=== PATIENT | female | born 1975 | race Caucasian/White ===

== ENCOUNTER 2017-08-26 07:59 | Inpatient (IN) | payer OTHER ==
[2017-08-19 15:40] VITALS: BMI 22.9
--- NOTE | 2017-08-23 10:51 | HP ---
Admitting History and Physical - Primary Care Physician PCP: Ian Yeh - Admission Chief Complaint: BRCA positive History of Present Illness: 41 year old premenapausal female Ashkenazi descent BRCA2 positive with strong family H/O breast and pancreatic cancer. Mammogram 11/2016 and breast MRI 06/2017 birad 1. History Source: Patient Limitations to Obtaining History: No Limitations - Past Medical History ...LMP Comment: JUL 2017 Additional Past Medical History: allergies - Past Surgical History Past Surgical History: Yes: (x2 with transfusion with her second cesection hematological W//U negative) Additional Past Surgical History: wisdom teeth - Advance Directives Advance Directives: Yes: Health Care Proxy - Smoking History Smoking history: Never smoked Have you smoked in the past 12 months: No - Alcohol/Substance Use Hx Alcohol Use: No Home Medications - Allergies Allergies/Adverse Reactions: Allergies Allergy/AdvReac Type Severity Reaction Status Date / Time amoxicillin AdvReac Yeast Verified 08/19/17 15:56 infection - Home Medications Home Medications: Ambulatory Orders NK [No Known Home Medication] 08/19/17 Family Disease History - Family Disease History Family Disease History: CA: Grandparent (mat GM breast ca 50/mat GF bone ca 50) , Sister (melanoma 40) Other Family History: mat cousin pancreatic ca 30. mat uncle CRC 50's Physical Examination Constitutional: Yes: Well Nourished Breast(s): Yes: Other (symmetrical no palpable masses or adenopathy bilaterally) Problem List - Problems (1) BRCA gene mutation positive Code(s): Z15.01 - GENETIC SUSCEPTIBILITY TO MALIGNANT NEOPLASM OF BREAST; Z15.09 - GENETIC SUSCEPTIBILITY TO OTHER MALIGNANT NEOPLASM Assessment/Plan bilateral total mastectomies with reconstruction
[2017-08-26] MEDS ORDERED: GENTAMICIN SO4 80 MG/2 ML VIAL ONE (08:34)
[2017-08-26] MEDS ORDERED: ceFAZolin SODIUM 1 GM VIAL ONE ×3 (08:34→15:13)
[2017-08-26] MEDS ORDERED: PROPOFOL 20 ML ONE ×2 (08:37)
[2017-08-26] MEDS ORDERED: MIDAZOLAM HCL 2 MG/2 ML SINGLE DOSE VIAL ONE ×2 (08:48→09:42)
[2017-08-26] MEDS ORDERED: DEXAMETHASONE SOD PHOSPHATE/PF 10 MG/ML SDV ONE (08:48)
[2017-08-26] MEDS ORDERED: BUPIVACAINE HCL/PF (5 MG/ML) 30 ML VIAL IJ ONE (08:49)
[2017-08-26] MEDS ORDERED: BUPIVACAINE HCL/PF 2.5 MG/ML - 30 ML VIAL IJ ONE (08:49)
[2017-08-26] MEDS ORDERED: LIDOCAINE HCL/PF 2% SDV 5ML VIAL ONE ×2 (09:42→10:13)
[2017-08-26] MEDS ORDERED: HYDROmorphone HCL/PF 1 MG/ML VIAL (FOR PYXIS CHARGING ONLY) ONE ×2 (10:46→12:51)
[2017-08-26] MEDS ORDERED: ONDANSETRON 4 MG/2 ML VIAL IVPUSH PRN ×2 (10:51→12:43)
[2017-08-26] MEDS ORDERED: LACTATED RINGERS SOLUTION 1,000 ML IV SCH (11:00)
[2017-08-26] MEDS ORDERED: DEXAMETHASONE SOD PHOSPHATE 4 MG/1 ML VIAL ONE (11:02)
[2017-08-26] MEDS ORDERED: NEOSTIGMINE METHYLSULFATE 0.5 MG/ML - 10 ML MDV ONE (12:01)
[2017-08-26] MEDS ORDERED: GLYCOPYRROLATE 0.2 MG/1 ML VIAL ONE (12:02)
[2017-08-26] MEDS ORDERED: ONDANSETRON 4 MG/2 ML VIAL ONE ×2 (12:07→14:35)
[2017-08-26] MEDS ORDERED: ROCURONIUM BROMIDE 50 MG/5 ML VIAL ONE (12:16)
[2017-08-26] MEDS ORDERED: ZOLPIDEM TARTRATE 5 MG TABLET PO PRN (12:43)
[2017-08-26] MEDS ORDERED: SUCCINYLCHOLINE CHLORIDE 200 MG/10 ML VIAL ONE (13:30)
[2017-08-26] MEDS: traMADol HCL 50 MG TABLET PO SCH ×3 (14:45→22:03)
[2017-08-26] MEDS: ACETAMINOPHEN 325 MG TABLET (FP) PO SCH ×3 (14:45→22:02)
[2017-08-26] MEDS: diazePAM 5 MG TABLET PO ONE ×2 (14:45→15:37)
[2017-08-26] MEDS ORDERED: CEFAZOLIN 1 GM/D5W 1 GRAM/50 ML BAG IVPB SCH (15:00)
[2017-08-26] MEDS: DEXTROSE 5%-0.45% SALINE 1,000 ML IV SCH (15:36)
[2017-08-26] MEDS: oxyCODONE HCL 5 MG TABLET PO PRN ×2 (16:33→18:01)
[2017-08-26] MEDS: CEFAZOLIN 1 GM/D5W 1 GRAM/50 ML BAG IVPB SCH (22:02)
[2017-08-26] MEDS: diazePAM 5 MG TABLET PO SCH (22:03)
--- NOTE | 2017-08-27 00:10 | OP ---
DATE OF OPERATION: 08/26/2017 PREOPERATIVE DIAGNOSIS: Genetic susceptibility for breast cancer, BRCA2 positive with strong family history. POSTOPERATIVE DIAGNOSIS: Genetic susceptibility for breast cancer, BRCA2 positive with strong family history. PROCEDURE: Bilateral total nipple sparing mastectomy through an inframammary approach with bilateral direct implant reconstruction with Alloderm. ANESTHESIA: General anesthesia PRIMARY SURGEON: Grant Kelly M.D. OUTBOARD MOTORBOAT RIGGER: Cheko Tran PRIMARY SURGEON: For bilateral direct implant reconstruction, Grant Fortune M.D., with his regulatory affairs assistant Arvin Castro COMPLICATIONS: There were no complications. Briefly, the patient is a 41-year-old G3, P2, premenopausal white female of Ashkenazi Jehovah'S Witness heritage. The patient has a strong family history with her maternal grandmother with breast cancer at age 50 and paternal great aunt had breast cancer at age 50. Maternal uncle had colon in his 50s, and maternal grandfather had bone cancer in his 50s. Sister had melanoma in her 40s and paternal cousin had pancreatic cancer in the 30s. The patient underwent genetic testing and turned out to be BRCA2 positive with a 6174 deletion T Ashkenazi Jehovah'S Witness mutation. She had undergone routine screening MRI in June of 2017 which was negative and mammography November 2016 which was negative. The patient has decided upon undergoing prophylactic breast reduction mastectomies and understood the options for risk reduction given her BRCA positive status. She understood our technique of a nipple sparing mastectomy through an inframammary incision. She understood all risks and complications including risk of skin flap necrosis, nipple loss, hematoma, and infection. She was seen by Dr. Fortune and understood the direct implant reconstruction technique. The patient was brought in for the procedure on August 26, 2017, at [place]. In the holding area, site verification was made and informed consent was obtained. She was marked preoperatively by the plastic surgeon. The patient was brought into the operating room and laid on the OR table in a supine position. Venodynes were placed on the lower extremities prior to induction. She received a gram of Ancef prior to incision. She underwent general anesthesia. Both breasts were sterilely prepped and draped in the usual fashion. Bilateral inframammary incisions were marked out to about 9 cm in length symmetrically in each inframammary fold. The left mastectomy was first performed. Incision was made and the skin edges were reverted and the breast was retracted inferiorly using Jose Miguel clamps. The PEAK radiofrequency device was used to raised the skin flap superiorly to the level of the clavicle, medially to the level of the sternum, laterally to the level of the latissimus, and inferiorly below the level of the inframammary fold. The breast was taken down of the pectoralis major muscle using electrocautery from inferomedial to superolateral completely removed intact. It was oriented with a long lateral, short superior suture and weighed to allow for appropriate cosmetic result. Retroareolar biopsies were taken underneath each nipple areolar complex shaving it down to about 3 mm and was sent for frozen section. The left retroareolar biopsy did come back with atypia but the nipple was spared since there was no cancer. Skin flaps were trimmed for good cosmetic result and hemostasis was achieved using electrocautery. The wound was copiously irrigated with warn sterile saline. At this point, the right breast was approached, again using a symmetrical 9 cm inframammary incision. The skin edges were reverted and the breast was retracted inferiorly using Jose Miguel clamps. Again, the PEAK radiofrequency device was used to raise the skin flap superiorly to the level of the clavicle, medially to the level of the sternum, laterally to the level of the latissimus, and inferiorly below the level of the inframammary fold. The breast was taken out off the pectoralis major muscle from inferomedial to superolateral and completely removed intact. It was oriented with a long lateral, short superior suture, weighed to allow for appropriate cosmetic result. Hemostasis was achieved using electrocautery, and the wound was copiously irrigated with warm sterile saline. Skin flaps were then trimmed for good cosmetic result. A retroareolar biopsy was taken underneath the right nipple areolar complex, again shaving it to about 3 mm and frozen section came back benign. Again, hemostasis was achieved with the wound irrigated. At this point, Dr. Fortune became the primary surgeon and performed bilateral direct implant reconstruction in the subpectoral location. Alloderm was sutured in its inferolateral aspects of both pectoralis major muscles to allow for the direct implant reconstructions. Two Jeremiah drains were placed around each implant and brought through separate stab incisions on the lateral skin flaps and these were secured in place using 3-0 nylon suture. They were placed on LEONEL suction. Wounds were all closed by plastic surgery using interrupted 3-0 deep dermal PDS suture and a running 4-0 subcuticular PDS suture. Mastisol, Steri-Strips were applied over the wound. The patient did have a preoperative pectoral block for postoperative pain control. We did use the SPY skin perfusion device during the case which showed a good skin perfusion bilaterally. The patient will be recovered postoperatively in the post anesthesia care unit and will be admitted postoperatively for pain management and wound management. All sponge, needle counts were correct at the end of the case, and estimated blood loss was about 125 mL. She was hemodynamically stable throughout. GRANT KELLY M.D. [id number]
[2017-08-27] MEDS: CEFAZOLIN 1 GM/D5W 1 GRAM/50 ML BAG IVPB SCH ×4 (02:51→21:00)
[2017-08-27] MEDS: oxyCODONE HCL 5 MG TABLET PO PRN ×4 (02:51→21:01)
[2017-08-27] MEDS: ACETAMINOPHEN 325 MG TABLET (FP) PO SCH ×4 (05:00→22:18)
[2017-08-27] MEDS: traMADol HCL 50 MG TABLET PO SCH ×4 (05:00→22:31)
[2017-08-27 08:43] LABS: HEMATOCRIT 30.3 % (32.4-45.2); HEMOGLOBIN 10.1 GM/dl (10.7-15.3); MCH 29.8 pg (25.7-33.7); MCHC 33.3 g/dl (32.0-36.0); MEAN CELL VOLUME 89.5 fl (80-96); PLATELET COUNT 240 K/MM3 (134-434); RBC 3.38 M/mm3 (3.60-5.2); RDW 12.1 % (11.6-15.6); WHITE BLOOD COUNT 13.6 K/mm3 (4.0-10.8)
--- NOTE | 2017-08-27 09:56 | PN ---
Progress Note, Physician Chief Complaint: S/P bilateral mastectomy with implant and alloderm reconstruction POD#1 History of Present Illness: Patient reports that she has had episodes of dizziness when walking/standing. She does report discomfort in the medial aspect over the sternum. She is tolerating po well. - Current Medication List Current Medications: Active Medications Acetaminophen (Tylenol -) 650 mg PO Q6H [facility] Last Admin: 08/27/17 05:00 Dose: 650 mg Acetaminophen (Tylenol -) 650 mg PO Q4H PRN PRN Reason: FEVER Diazepam (Valium -) 5 mg PO BID [facility] Last Admin: 08/26/17 22:03 Dose: 5 mg Dextrose/Sodium Chloride (D5-1/2ns -) 1,000 mls @ 100 mls/hr IV ASDIR [facility] Last Admin: 08/26/17 15:36 Dose: Not Given Cefazolin Sodium (Ancef 1 Gm Premixed Ivpb -) 1 gram in 50 mls @ 100 mls/hr IVPB Q6H-IV [facility] Last Admin: 08/27/17 02:51 Dose: 100 mls/hr Ondansetron HCl (Zofran Injection) 4 mg IVPUSH Q6H PRN PRN Reason: NAUSEA AND/OR VOMITING Last Admin: 08/26/17 14:50 Dose: 4 mg Oxycodone HCl (Roxicodone -) 5 mg PO Q4H PRN PRN Reason: PAIN LEVEL 1-5 Last Admin: 08/26/17 18:01 Dose: 5 mg Oxycodone HCl (Roxicodone -) 10 mg PO Q4H PRN PRN Reason: PAIN LEVEL 6-10 Last Admin: 08/27/17 02:51 Dose: 10 mg Tramadol HCl (Ultram -) 50 mg PO Q6H [facility] Last Admin: 08/27/17 05:00 Dose: 50 mg Zolpidem Tartrate (Ambien -) 5 mg PO HS PRN PRN Reason: Insomnia - Objective Vital Signs: Vital Signs Temperature 98.6 F 08/27/17 06:00 Pulse Rate 70 08/27/17 06:00 Respiratory Rate 18 08/27/17 06:00 Blood Pressure 83/54 08/27/17 06:00 O2 Sat by Pulse Oximetry (%) 96 08/27/17 06:00 Constitutional: Yes: Well Nourished, Calm Breast(s): Yes: Other (Bilateral breast flaps with mild ecchymosis. Nipples are pink. LEONEL X4 with serosanginous discharge noted bilaterally.) Wound/Incision: Yes: Clean/Dry Labs: CBC, BMP 08/27/17 07:55 Problem List - Problems (1) BRCA gene mutation positive Code(s): Z15.01 - GENETIC SUSCEPTIBILITY TO MALIGNANT NEOPLASM OF BREAST; Z15.09 - GENETIC SUSCEPTIBILITY TO OTHER MALIGNANT NEOPLASM Assessment/Plan Plan: Will give one liter of IVF for decreased BP. Monitor VS Spoke to anesthesia about pain management Teach LEONEL monitoring and recording F/U with Dr Yeh and Dr. Fortune
[2017-08-27] MEDS: diazePAM 5 MG TABLET PO SCH ×2 (10:07→22:31)
[2017-08-27] MEDS: ACETAMINOPHEN 325 MG TABLET (FP) PO PRN ×3 (10:08→21:01)
--- NOTE | 2017-08-27 11:02 | PN ---
Progress Note (short form) - Note Progress Note: 41F POD1 s/p bilateral prophylactic msatectomy under GA-ETT with b/l PECS I and II blocks for post operative pain relief. Pt states that pain is well controlled and reports no anesthetic complications. AVSS. Pt normally has low-normal BP systolics in high 80s, low 90s. Pt denying orthostatic symptoms. Continue current regimen.
[2017-08-27] MEDS: DEXTROSE 5%-0.45% SALINE 1,000 ML IV SCH (18:01)
[2017-08-28] MEDS: CEFAZOLIN 1 GM/D5W 1 GRAM/50 ML BAG IVPB SCH ×2 (02:48→09:45)
[2017-08-28] MEDS: oxyCODONE HCL 5 MG TABLET PO PRN ×3 (04:03→14:21)
[2017-08-28] MEDS: ACETAMINOPHEN 325 MG TABLET (FP) PO SCH ×3 (04:04→11:14)
[2017-08-28] MEDS: traMADol HCL 50 MG TABLET PO SCH ×2 (04:04→10:17)
--- NOTE | 2017-08-28 09:17 | DS ---
Physical Examination Vital Signs: Vital Signs Temperature 98.3 F 08/28/17 06:00 Pulse Rate 73 08/28/17 06:00 Respiratory Rate 18 08/28/17 06:00 Blood Pressure 90/47 08/28/17 06:00 O2 Sat by Pulse Oximetry (%) 96 08/28/17 06:32 Constitutional: Yes: Well Nourished Eyes: Yes: WNL HENT: Yes: WNL Neck: Yes: WNL Cardiovascular: Yes: WNL Respiratory: Yes: WNL Gastrointestinal: Yes: WNL (doing well) Labs: CBC, BMP 08/27/17 07:55 Discharge Summary Reason For Visit: GENETIC SUSCEPTIBILITY Condition: Good - Instructions Diet, Activity, Other Instructions: regular - Home Medications Comprehensive Discharge Medication List: Ambulatory Orders NK [No Known Home Medication] 08/19/17
[2017-08-28] MEDS: diazePAM 5 MG TABLET PO SCH (09:45)
[2017-08-28] MEDS: DEXTROSE 5%-0.45% SALINE 1,000 ML IV SCH (13:12)
[2017-08-28 15:28] VITALS: BP 110/59; PULSE 70; TEMP 98.5
--- NOTE | 2017-08-29 19:00 | OP ---
DATE OF OPERATION: 08/26/2017 SURGEON: Grant Fortune MD SYSTEMS LIBRARIAN SURGEON: ARNAV Castro This is the combined dictation with Dr. Grant Yeh for bilateral implant AlloDerm reconstruction with SPY intraoperative angiogram. PREOPERATIVE DIAGNOSIS: Bilateral acquired chest wall deformity, status post bilateral mastectomy. POSTOPERATIVE DIAGNOSIS: Bilateral acquired chest wall deformity, status post bilateral mastectomy. ANESTHESIA: General. OPERATIVE PROCEDURE IN DETAIL: The patient was taken to the operating room. After induction of general anesthesia in the supine position, both arms were extended and padded. Venodyne boots were placed. The entire chest wall was painted with ChloraPrep solution over its entire extent, and sterile drapes were placed in the usual fashion. The markings, which had been made in the standing position preoperatively, were reoutlined with the patient's knowledge. Time-out procedure was performed. Attention was turned by Dr. Yeh to the mastectomies. Bilateral inframammary incisions were made and Dr. Yeh performed mastectomies. This will be dictated under separate cover. Upon completion of the mastectomies, the wounds were copiously irrigated and attention was turned to the right breast. A subpectoral dissection was begun on the right breast, superiorly from the second rib, medially to the sternal fibers, and down to the inframammary fold, elevating the pectoralis major muscle from its insertion. At this point, a AlloDerm Select tissue matrix RTU Contour medium perforated sheets were placed bilaterally.of AlloDerm was brought into the field and sutured superiorly along the pectoralis major muscle after rehydration. This was carried along the lateral mammary fold and down the side of the breast reconstruction. At this point, a Natrelle Inspira Cohesive implant was chosen, style SCF, 605 mL volume. The left breast tissue removed was 340 gm, and the right breast approximately 372 gm. This implant was placed and then sutured with 3-0 Vicryl suture continued along the inframammary fold, completely covering the implant itself. The exact same procedure was carried out symmetrically on the opposite breast, also placing a Natrelle Inspira Cohesive implant was chosen, style SCF, 605 mL volume implant in the same subpectoral pocket. Good symmetry was seen in the sitting position. 2 separate SPY intraoperative angiograms showed good blood flow bilaterally. After the implants were in place, the patient was injected with 10 mL of Isocyanide green dye and the Spy imaging system was brought into the field. The skin flowed to the right and left breasts and the nipple areolar complex, and the entire skin flaps were evaluated and seen to be viable with good blood flow. Two Jeremiah drains were brought out through separate stab wounds laterally. Both wounds were closed symmetrically using 3-0 PDS suture on the deep tissue, 3-0 in a deep dermal fashion, and 4-0 in a subcuticular fashion. Both wounds were dressed sterilely with Mastisol and Steri-Strips with a surgical bra and a compression strap. The patient tolerated the procedure well. She was awakened, extubated and transferred to the recovery room in satisfactory condition. The physiotherapy assistant was present during the entire portion of the operation and closure. GRANT FORTUNE M.D. [id number] MTDD
--- NOTE | 2017-08-31 15:16 | PATH ---
Surgical Pathology Report Patient Name: ROCKY IYER Med. Rec. #: [id number] /Age/Gender: 1975 (Age: 41) / F Account: [id number] Location: [facility] MED-SURG Taken: 08/26/2017 Received: 08/26/2017 Reported: 08/31/2017 Physicians: Ian Yeh M.D. Specimen(s) Received A: RIGHT RETROAREOLAR BIOPSY. FS B: LEFT RETROAREOLAR BIOPSY. FS C: RIGHT MASTECTOMY D: LEFT MASTECTOMY Clinical History BRCA 2+ bilateral prophylactic Intraoperative Consult Diagnosis A. Right retroareolar biopsy, frozen section: Negative for malignancy. B. Left retroareolar biopsy, frozen section: Focal atypical ductal hyperplasia (ADH). Christy Cleary M.D., 08/26/17 Final Diagnosis A. RETROAREOLA, RIGHT, BIOPSY (FS): BENIGN BREAST TISSUE; NEGATIVE FOR MALIGNANCY. B. RETROAREOLA, LEFT, BIOPSY (FS): BENIGN BREAST TISSUE; NEGATIVE FOR MALIGNANCY. (SEE NOTE) Note: No atypical ductal hyperplasia is identified on permanent sections. C. BREAST, RIGHT, NIPPLE-SPARING MASTECTOMY: BENIGN BREAST TISSUE SHOWING FIBROCYSTIC CHANGES INCLUDING FOCAL USUAL DUCTAL HYPERPLASIA (UDH) AND STROMAL FIBROSIS. D. BREAST, LEFT, NIPPLE-SPARING MASTECTOMY: BENIGN BREAST TISSUE SHOWING FIBROCYSTIC CHANGES INCLUDING FOCAL USUAL DUCTAL HYPERPLASIA (UDH) AND STROMAL FIBROSIS. Electronically Signed Kizzy Cleary M.D. Gross Description A. Received fresh for frozen section labeled "right retroareolar biopsy," is a 1.4 x 1.0 x 0.3 cm portion of red and yellow garrido soft tissue. A frozen section is performed on the specimen. The frozen section residue is entirely submitted in one cassette. B. Received fresh for frozen section labeled "left retroareolar biopsy," is a 2.2 x 1.4 x 0.3 cm portion of red and yellow garrido tissue. A frozen section is performed on the specimen. The frozen section residue is entirely submitted in one cassette. C. Received in formalin, labeled "right mastectomy," is a 372 gram, 14.0 x 13.0 x 4.0 cm. right mastectomy specimen with a short suture marking the superior aspect and a long suture marking the lateral aspect of the specimen, per the surgeon. There is no skin or nipple present. The deep margin is inked black and the anterior soft tissue margin is inked blue. The specimen is serially sectioned from lateral to medial. Sectioning reveals multifocal dense white fibrous tissue. Sql Data Analyst sections are submitted in 14 cassettes as follows: 1-3-upper outer quadrant; 4-6-lower outer quadrant; 7-9-upper inner quadrant; 10-12-lower inner quadrant; 13-anterior soft tissue margin; 14-deep margin. D. Received in formalin, labeled "left mastectomy," is a 297 gram, 13.5 x 11.5 x 3.8 cm. left mastectomy specimen with a short suture marking the superior aspect and a long suture marking the lateral aspect of the specimen, per the surgeon. There is no skin or nipple present. The deep margin is inked black and the anterior soft tissue margin is inked blue. The specimen is serially sectioned from medial to lateral. Sectioning reveals multifocal dense white fibrous tissue. Sql Data Analyst sections are submitted in 14 cassettes as follows: 1-3-upper outer quadrant; 4-6-lower outer quadrant; 7-9-upper inner quadrant; 10-12-lower inner quadrant; 13-anterior soft tissue margin; 14-deep margin. Total formalin fixation time: Approximately 29 hours 08/27/201708/27/2017
== END 2017-08-28 15:31 | disposition home or self-care (01) | DRG 585 ==
LOC: FM/S 07:59 → EDBD 09:30 → FM/S 16:21
PROVIDERS: ADMIT Plastic Surgery; ATTEND Surgery Surgical Oncology
PROC: 4A1GXSH Monitoring of Skin and Breast Vascular Perfusion using Indocyanine Green Dye, External Approach (ICD-10-PCS; 2017-08-26)
PROC: 0HTV0ZZ Resection of Bilateral Breast, Open Approach (ICD-10-PCS; principal; 2017-08-26 11:01)
PROC: 0HUV0JZ Supplement Bilateral Breast with Synthetic Substitute, Open Approach (ICD-10-PCS; 2017-08-26 11:01)
DX: Z40.01 Encounter for prophylactic removal of breast (principal); Z80.3 Family history of malignant neoplasm of breast; M95.4 Acquired deformity of chest and rib; Z15.01 Genetic susceptibility to malignant neoplasm of breast
CPT/HCPCS: 36415; 84703; 85027; 88307-TC; 88331-TC; 94010; 94760